=== PATIENT | male | born 1995 | race Caucasian/White ===

== ENCOUNTER 2017-10-07 14:47 | Emergency (ER) | payer OTHER ==
[~2017-10-07] VITALS: Ht 170.2 cm; Wt 61.2 kg
[2017-10-07 15:38] VITALS: BP 140/80
--- NOTE | 2017-10-07 15:57 | PHYS DOC ---
Past Medical History Past Medical History: No Pertinent History, Anxiety Past Surgical History: Other Additional Past Surgical Histo: HERNIA Alcohol Use: None Drug Use: None Adult General Chief Complaint Chief Complaint: OTHER COMPLAINTS HPI HPI Patient is a 22 year old male who presented to the emergency Department today with a request for drug testing. Patient states he hasn't had sutures at [facility] care but they were unable to do a drug screen for his employer. He denies any other complaints or needs. Review of Systems Review of Systems Constitutional: Denies fever or chills; request drug screen for unclear [] HENT: Denies nasal congestion or sore throat [] Respiratory: Denies cough or shortness of breath [] All other systems were reviewed and found to be within normal limits, except as documented in this note. Allergies Allergies Allergies Coded Allergies Type Severity Reaction Last Updated Verified No Known Drug Allergies 10/07/17 No Physical Exam Physical Exam Constitutional: Well developed, well nourished, no acute distress, non-toxic appearance. [] HENT: Normocephalic, atraumatic, bilateral external ears normal, nose normal. [] Eyes: PERRLA, conjunctiva normal, no discharge. [] Lungs & Thorax: Regular evening respirations, no respiratory distress noted Skin: Warm, dry, no erythema Neurologic: Alert and oriented X 3, normal motor function, normal sensory function, no focal deficits noted. [] Psychologic: Affect normal, judgement normal, mood normal. [] Current Patient Data Vital Signs Vital Signs Date Time Temp Pulse Resp B/P (MAP) Pulse Ox O2 Delivery O2 Flow Rate FiO2 10/07/17 15:38 98.5 69 16 140/80 (100) 98 Room Air 98.5 EKG EKG [] Radiology/Procedures Radiology/Procedures [] Course & Med Decision Making Course & Med Decision Making Pertinent Labs and Imaging studies reviewed. (See chart for details) Patient is a 22-year-old male who presented to the emergency room with a request for urine drug screening for his employer. A guardian employee came to the emergency room and collected the patient's urine for testing. Patient denied any other complaints or concerns. [] Dragon Disclaimer Dragon Disclaimer This electronic medical record was generated, in whole or in part, using a voice recognition dictation system. Departure Departure Impression: Primary Impression: Encounter for drug screening Disposition: HOME, SELF-CARE Condition: STABLE Referrals: NO PCP (PCP) Patient Instructions: Drug Testing Additional Instructions: Your urine was collected by the guardian assisted sales representative and will be tested by them. Follow-up with your employer as needed. MELISSA LEONARDO APRN Oct 07, 2017 15:57
== END 2017-10-07 16:08 | disposition home or self-care (01) ==
LOC: ER 14:47
DX: Z13.89 Encounter for screening for other disorder (principal); Z98.890 Other specified postprocedural states
CPT/HCPCS: 99281